=== PATIENT | male | born 1960 | race Hispanic/Latino ===

== ENCOUNTER 2016-08-12 08:01 | Day surgery (SDC) | payer BC ==
[2016-08-12] MEDS ORDERED: D50W (25GM) IV ONE ×2 (08:29→08:34)
[2016-08-12 08:41] VITALS: BP 104/60
[2016-08-12 08:43] LABS: Hematocrit 44.6 % (35.5-45.6); Hemoglobin 15.1 gm/dl (11.8-15.2); Mean Corpuscular HGB Conc 34 % (32-34); Mean Corpuscular Hemoglobin 31 pg (28-32); Mean Corpuscular Volume 92 fl (84-94); Platelet Count 128 K/mm3 (140-440); Red Blood Count 4.87 M/mm3 (3.65-5.03); Red Cell Distribution Width 15.2 % (13.2-15.2); White Blood Count 15.9 K/mm3 (4.5-11.0)
[2016-08-12 08:55] LABS: INR 0.87 (0.87-1.13)
[2016-08-12] MEDS ORDERED: SUBLIMAZE IV ONE (09:08)
[2016-08-12] MEDS ORDERED: VERSED IV ONE (09:08)
--- NOTE | 2016-08-12 14:36 | Cat Scan Report ---
CT CHEST WITHOUT CONTRAST: HISTORY: Right lung mass. TECHNIQUE: Helical CT without IV contrast. Sagittal and coronal reformatted images. FINDINGS: There are no relevant studies for comparison at this facility. Correlation is made to a CT report from an outlying facility. There are mild centrilobular emphysematous changes in both upper lung zones. No bullous changes. There is an irregular, linear air space density in the medial right upper lobe adjacent to the superior mediastinum measuring 3.6 x 0.9 x 0.8 cm. This lesion is highly characteristic of focal parenchymal scarring. Please note, this lesion could not be biopsied secondary to its close association to the mediastinum and ascending aorta. In my opinion, this lesion is most consistent with scarring and not a pulmonary mass. The remainder of the lungs are clear. No pleural effusion, infiltrate or pneumothorax. Heart size is within normal limits. The mediastinal vessels are unremarkable given no IV contrast is present. Scattered borderline mediastinal lymph nodes are noted. The largest lymph node is in the subcarinal chain measuring 1.6 cm. The bony structures are intact. Please note, the lung bases are not included. This examination was to be a CT-guided biopsy which was not performed. IMPRESSION: Emphysematous changes. Linear density in the medial right upper lobe is identified and is inaccessible for CT-guided biopsy. In my opinion this represents a scar. The patient is on the schedule for PET/CT tomorrow. These findings were explained to the patient and he was in agreement to cancel the biopsy.
== END 2016-08-12 10:00 | disposition home or self-care (01) ==
LOC: OPU 08:01
PROVIDERS: ATTEND Specialist
DX: R91.8 Other nonspecific abnormal finding of lung field (principal); I10 Essential (primary) hypertension; E11.9 Type 2 diabetes mellitus without complications
CPT/HCPCS: 36415; 71250; 82962; 85027; 85610; 85730

== ENCOUNTER 2016-08-18 08:01 | Day surgery (SDC) | payer BC ==
[2016-08-18] MEDS ORDERED: SUBLIMAZE IV NR (08:23)
[2016-08-18] MEDS ORDERED: VERSED IV NR (08:23)
[2016-08-18 08:41] LABS: Hematocrit 41.9 % (35.5-45.6); Hemoglobin 14.2 gm/dl (11.8-15.2); Mean Corpuscular HGB Conc 34 % (32-34); Mean Corpuscular Hemoglobin 31 pg (28-32); Mean Corpuscular Volume 92 fl (84-94); Platelet Count 139 K/mm3 (140-440); Red Blood Count 4.57 M/mm3 (3.65-5.03); White Blood Count 14.5 K/mm3 (4.5-11.0)
[2016-08-18 08:48] LABS: INR 0.82 (0.87-1.13)
[2016-08-18 08:49] LABS: Partial Thromboplastin Time < 20.0 Sec. (24.2-36.6)
[2016-08-18 12:09] VITALS: BP 145/87
--- NOTE | 2016-08-19 08:05 | Cat Scan Report ---
CT BIOPSY BONE SUPERFICIAL: HISTORY: Left posterior 10th rib destructive mass. DESCRIPTION OF PROCEDURE: Informed consent was obtained. Sterile technique was utilized. Conscious sedation was accomplished with Versed and fentanyl. 1% lidocaine for skin anesthesia. Intra-observer time was 20 minutes. Independent cardiorespiratory monitoring by RN. Using CT guidance, a 17-gauge introducer needle was advanced to the leading edge of a 4.3 x 2.3 cm destructive left posterior 10th rib lesion. Three 18-gauge core biopsies were obtained for pathology. The samples were deemed adequate by the pathologist on site. No complications. IMPRESSION: Successful CT-guided biopsy of the left 10th rib lesion, as described.
[2016-08-20 11:18] LABS: CYTOMETRY FIRST MARKER SCANNED INTO MED REC; FLOW ADDITIONAL MARKER SCANNED INTO MED REC
== END 2016-08-18 12:30 | disposition home or self-care (01) ==
LOC: OPU 08:01
PROVIDERS: ATTEND Radiology Radiation Oncology
DX: C79.51 Secondary malignant neoplasm of bone (principal); C80.1 Malignant (primary) neoplasm, unspecified; E11.9 Type 2 diabetes mellitus without complications; I10 Essential (primary) hypertension; Z87.891 Personal history of nicotine dependence
CPT/HCPCS: 20220; 36415; 77012; 85027; 85610; 85730; 88172; 88173; 88184; 88185; 88307; 88341; 88342; J2250; J3010; 88305; 88333